=== PATIENT | male | born 1940 | race Caucasian/White ===

== ENCOUNTER 2018-10-24 12:42 | Inpatient (IN) | payer MEDICARE, BC ==
[2018-10-24 13:13] LABS: #Basophils 0.1 thou/uL (0.0-0.2); #Eosinphils 0.2 thou/uL (0.0-0.7); #Lymphocytes 0.8 thou/uL (1.20-3.40); #Monocytes 0.5 thou/uL (0.11-0.59); #Neutrophils 3.1 thou/uL (1.40-6.50); %Basophils 1.5 % (0.0-1.0); %Eosinophils 3.9 % (0.0-10.0); %Lymphocytes 17.7 % (21.0-51.0); %Monocytes 10.8 % (0.0-10.0); %Neutrophils 66.1 % (42.0-75.0); Hemoglobin 12.4 g/dL (14.0-18.0); Mean Corpuscular HGB CONC 33.2 g/dL (32.0-36.0); Mean Corpuscular Hemoglobin 29.4 pg (27.0-31.0); Mean Corpuscular Volume 88.5 fL (78.0-98.0); Mean Platelet Volume 8.9 fL (7.4-10.4); Platelet Count 222 thou/uL (130-400); RBC Distribution Width 12.8 % (11.5-14.5); Red Blood Cell (RBC) Count 4.22 mill/uL (4.70-6.10); White Blood Cell (WBC) Count 4.7 thou/uL (4.8-10.8)
--- NOTE | 2018-10-24 13:20 | CT ---
CT HEAD WITHOUT CONTRAST: 10/24/18 INDICATIONS: Stroke alert. Right side weakness. There are no comparison studies. FINDINGS: Mild cortical volume loss. Ventricles have normal size and position. There are moderately severe chronic ischemic white matter changes. There are numerous old lacunar inf arcts seen in the periventricular white matter and the basal ganglia regions bilaterally. At least on e of these in the left thalamus is age indeterminate. There is evidence of an old cortical infarct in the left parietal lobe. No hemorrhage or mass. No evidence of acute cortical infarct. Sinuses and mastoids are clear. IMPRESSION: Moderately severe chronic ischemic change. Evidence of numerous old lacunar infarcts with an age inde terminate lacunar infarct in the left thalamus. No evidence of acute cortical infarct. Findings relayed to Dr. Sainz at 1:06 p.m. POS: OFF
[2018-10-24 13:29] LABS: Prothrombin Time 12.9 SEC (12.0-14.7)
[2018-10-24 13:43] LABS: ALT (SGPT) 32 U/L (8-55); AST (SGOT) 41 U/L (5-34); Albumin 4.4 g/dL (3.4-4.8); Alkaline Phosphatase 53 U/L (40-150); Anion Gap 15 mmol/L (10-20); BUN (Urea Nitrogen) 21 mg/dL (8.4-25.7); Bilirubin, Total 0.3 mg/dL (0.2-1.2); CK (CPK) 52 U/L (30-200); Calc. Creatinine Clearance 0 mL/min (70-130); Calcium 9.9 mg/dL (7.8-10.44); Carbon Dioxide 24 mmol/L (23-31); Chloride 106 mmol/L (98-107); Estimated GFR-MDRD 39; Glucose 126 mg/dL (83-110); Potassium 5.3 mmol/L (3.5-5.1); Protein, Total 7.4 g/dL (5.8-8.1); Sodium 140 mmol/L (136-145)
[2018-10-24] MEDS ORDERED: Aspirin 300 MG Suppository ONE (14:33)
[2018-10-24] MEDS ORDERED: Aspirin Chewable 81 MG TAB ONE (14:38)
[2018-10-24] MEDS ORDERED: Ondansetron PF 4 MG/2 ML Vial IVP PRN (15:01)
[2018-10-24] MEDS ORDERED: Acetaminophen 325 MG TAB PO PRN (15:01)
--- NOTE | 2018-10-24 15:19 | PDOC.FPRHP ---
- History of Present Illness Chief Complaint: speech difficulty and right sided weakness History of Present Illness: Obdulio Garibay is a 78 year old M with a PMH of CAD s/p CABG, Hx of TIA's, Dementia who is a resident of [facility] who presented to the ED after being found this morning with speech difficulty and right sided weakness and facial droop by [facility] staff. Patient's and son are present on admission and provide majority of history. He was last seen at his baseline mental and functional status the night prior to arrival, it is unknown when exactly his symptoms began. states that patient is normally about A&O X2 and he has urinary incontinence at baseline. Most notable symptom for family upon arrival to ED is patient's inability to find words, stating that it normally doesn't take him as long to communicate and answer questions. Denies any recent complaints of fever, chills, chest pain, dyspnea, n/v, abdominal pain, urinary complaints. In the ED, CT brain was done that showed moderate chronic ischemic changes and numerous old lacunar infarcts. EKG was done that showed NSR with nonspecific T wave and ST segment abnormalities. Patient was given aspirin and 500 cc NS bolus. - Allergies/Adverse Reactions Allergies Allergy/AdvReac Type Severity Reaction Status Date / Time No Known Allergies Allergy Unverified 10/24/18 15:06 - Home Medications Medication Instructions Recorded Confirmed Type Amitriptyline HCl 75 mg PO HS 10/24/18 10/24/18 History Aspirin [Ecotrin Low Strength] 81 mg PO DAILY 10/24/18 10/24/18 History Clopidogrel Bisulfate [Clopidogrel] 75 mg PO DAILY 10/24/18 10/24/18 History Donepezil HCl 10 mg PO HS 10/24/18 10/24/18 History Furosemide 20 mg PO DAILY 10/24/18 10/24/18 History Gabapentin 300 mg PO TID 10/24/18 10/24/18 History Isosorbide Mononitrate 20 mg PO DAILY 10/24/18 10/24/18 History Levothyroxine Sodium [Synthroid] 137 mcg PO DAILY 10/24/18 10/24/18 History Montelukast Sodium 10 mg PO DAILY 10/24/18 10/24/18 History Rosuvastatin [Crestor] 20 mg PO DAILY 10/24/18 10/24/18 History metFORMIN [Glucophage] 500 mg PO QA- 10/24/18 10/24/18 History - History PMHx: CAD, HTN, DM2, Hx of TIA, Dementia PSHx: CABG X3 vessel, Lap Klaudia, excision of malignant melanoma FHx: noncontributory Social: hx of 40 pack yr smoking-quit 30 years ago, denies current alcohol, tobacco, drug use - Review of Systems ROS unobtainable: due to mental status General: denies: fever/chills Eyes: denies: eye pain ENT: denies: nasal congestion, rhinorrhea Respiratory: denies: cough, congestion, shortness of breath Cardiovascular: denies: chest pain, palpitation Gastrointestinal: denies: nausea, vomiting, diarrhea, abdominal pain Genitourinary: reports: incontinence. denies: dysuria, discharge Skin: denies: rashes, lesions Musculoskeletal: denies: pain Neurological: denies: syncope, seizure Psychological: denies: anxiety, depression - Vital signs BP: 145/88 HR: 66 RR: 18 Tmax: 97.9 Pox: 96% on RA Wt: 95 kg - Physical Exam Constitutional: NAD, well developed, other (A&O X1) HEENT: normocephalic and atraumatic, PERRLA, EOMI, conjunctiva clear, grossly normal vision, grossly normal hearing, MMM Neck: supple, FROM Chest: no-tender to palpation, no lesions Heart: RRR, normal S1/S2, no murmurs/rubs/gallops Lungs: CTAB, no respiratory distress Abdomen: soft, non-tender, bowel sounds present Musculoskeletal: normal structure, normal tone, ROM grossly normal Neurological: no focal deficit, CN II-XII intact, other -Neurological: difficult to assess sensation, no obvious deficits on neuro exam Skin: no rash/lesions Heme/Lymphatic: no unusual bruising or bleeding, no purpura, no petechia -Psychiatric: unable to assess FMR H&P: Results - Labs Result Diagrams: 10/24/18 12:57 10/24/18 12:57 Lab results: WBC 4.7 thou/uL (4.8-10.8) L 10/24/18 12:57 Hgb 12.4 g/dL (14.0-18.0) L 10/24/18 12:57 Hct 37.3 % (42.0-52.0) L 10/24/18 12:57 MCV 88.5 fL (78.0-98.0) 10/24/18 12:57 Plt Count 222 thou/uL (130-400) 10/24/18 12:57 Neutrophils % 66.1 % (42.0-75.0) 10/24/18 12:57 Sodium 140 mmol/L (136-145) 10/24/18 12:57 Potassium 5.3 mmol/L (3.5-5.1) H 10/24/18 12:57 Chloride 106 mmol/L (98-107) 10/24/18 12:57 Carbon Dioxide 24 mmol/L (23-31) 10/24/18 12:57 BUN 21 mg/dL (8.4-25.7) 10/24/18 12:57 Creatinine 1.72 mg/dL (0.7-1.3) H 10/24/18 12:57 Glucose 126 mg/dL (83-110) H 10/24/18 12:57 Calcium 9.9 mg/dL (7.8-10.44) 10/24/18 12:57 Total Bilirubin 0.3 mg/dL (0.2-1.2) 10/24/18 12:57 AST 41 U/L (5-34) H 10/24/18 12:57 ALT 32 U/L (8-55) 10/24/18 12:57 Alkaline Phosphatase 53 U/L (40-150) 10/24/18 12:57 Creatine Kinase 52 U/L (30-200) 10/24/18 12:57 Serum Total Protein 7.4 g/dL (5.8-8.1) 10/24/18 12:57 Albumin 4.4 g/dL (3.4-4.8) 10/24/18 12:57 - EKG Interpretation EKG: NSR, nonspecific T wave and ST segment abnormalities - Radiology Interpretation CT scan - head Status: image reviewed by me, report reviewed by me (Moderate chronic ischemic changes, numerous old lacunar infarcts) FMR H&P: A/P - Problem List (1) TIA (transient ischemic attack) Current Visit: Yes Status: Acute Code(s): G45.9 - TRANSIENT CEREBRAL ISCHEMIC ATTACK, UNSPECIFIED (2) Acute kidney injury Current Visit: Yes Status: Acute Code(s): N17.9 - ACUTE KIDNEY FAILURE, UNSPECIFIED (3) Hyperkalemia Current Visit: Yes Status: Acute Code(s): E87.5 - HYPERKALEMIA (4) Hypertension Current Visit: Yes Status: Chronic Code(s): I10 - ESSENTIAL (PRIMARY) HYPERTENSION (5) CAD (coronary artery disease) Current Visit: Yes Status: Chronic Code(s): I25.10 - ATHSCL HEART DISEASE OF [place] CORONARY ARTERY W/O ANG PCTRS (6) Dementia Current Visit: Yes Status: Chronic Code(s): F03.90 - UNSPECIFIED DEMENTIA WITHOUT BEHAVIORAL DISTURBANCE (7) Diabetes mellitus Current Visit: Yes Status: Chronic Code(s): E11.9 - TYPE 2 DIABETES MELLITUS WITHOUT COMPLICATIONS - Plan 1) TIA: r/o CVA - expressive aphasia, reported right sided upper and lower ext weakness per nursing staff - aphasia on presentation but no signs of weakness - s/p Aspirin and 500 cc NS bolus in ED - CT brain showed chronic ischemic changes and old lacunar infarcts - checking Echo and MRI brain - continue high intensity statin and aspirin - holding antihypertensives at this time to allow for permissive hypertension - stroke team consulted - PT/OT/Speech consulted - NPO, until cleared by speech - obs/stroke 2) BOB - unsure of baseline kidney function - s/p 500 cc NS bolus - will continue to monitor 3) Hyperkalemia-mild - K+ of 5.3 on admission - continue to monitor 4) HTN - holding antihypertensives for now - will continue after 24-48 hours 5) DM2 - holding home metformin - SSI - Accuchecks, hypoglycemia protocol 6) Dementia - continue home regimen 7) CAD - continue home regimen PCP: Obdulio Rawls MD Diet: NPO until cleared by speech VTE Ppx: Lovenox Code Status: DNAR Dispo: Will r/o CVA with brain MRI, continue medical management. Stroke team/PT /OT/Speech consulted. Anticipate hospital stay < 2 midnights unless work up shows acute CVA. Addendum - Attending - Attending Attestation Date/Time: 10/24/18 3328 I personally evaluated the patient and discussed the management with Dr. Wilson. I agree with the History, Examination, Assessment and Plan documented above with any addition or exceptions noted below. S: 78 yo WM PMH advanced dementia with baseline A&Ox2 and multiple prior TIA/ CVA. Presents from [facility] with worsening speech articulation and new onset right sided weakness. At the time of my examination, the patients and son state his motor function is at baseline and his speech has nearly returned to normal. He had passed his bedside dysphasia screen at that time and had received ASA 324 mg PO. O: Gen: NAD CV: RRR no murmur Neuro: 5/5 strength in upper and lower major muscle groups bilaterally. Cranial nerve exam grossly normal but unable to completely assess due to patient's baseline mentation. A&P: 1. TIA r/o CVA: Obs, stroke, MRI brain, TTE. Discussed vascular evaluation with family who stated the patient had an evaluation in the [place] several years ago and was determined to need a "stent somewhere in his brain." However the doctors at that time did not feel he was a good candidate for this procedure and family elected not to proceed. Family declined evaluation of the vasculature as they would not want the patient to undergo further procedures but were agreeable to MRI of the brain to evaluate for acute infarct. Patient currently taking Daily ASA 81 qd and lipitor 40 mg QD. Increase lipitor to 80 mg QD as long as patient will tolerate. Permissive HTN for the next 24 hrs. Dispo: Obs, Stroke < [address] Daily present for evaluation.
--- NOTE | 2018-10-24 17:43 | MRI ---
MRI BRAIN NONCONTRAST: DATE: 10/24/2018 HISTORY: 78-year-old male with stroke COMPARISON: No prior MRIs FINDINGS: There is a large number of tiny, punctate foci of restricted diffusion in the left parietal cortex an d upper left frontal cortex, consistent with acute or subacute tiny infarctions. Small to moderate-sized old infarction in the left parietal lobe with laminar necrosis. Small old inf arction in left middle frontal gyrus. Numerous tiny old lacunar infarctions of bilateral basal ganglia and left thalamus, left caudate nucl eus, and internal capsules. Diffuse brain parenchymal volume loss. Moderate to severe chronic ischemic white matter changes of the cerebrum and brainstem. No obstructive hydrocephalus. No acute intra-axial hemorrhage. Patchy hemosiderin stain at right upper medial frontal lobe representing a site of prior hemorrhage. IMPRESSION: 1) a shower of numerous tiny, punctate acute or subacute infarctions in the left middle cerebral jose ry territory. 2) old infarctions of small and moderate sizes in the left middle cerebral artery territory 3) old hemorrhage in right frontal lobe. 4) multiple old lacunar infarctions in the bilateral corpus striatum and left thalamus. 5) moderate to severe chronic ischemic white matter changes.
[2018-10-24 17:55] VITALS: BMI 27.3
[2018-10-24] MEDS ORDERED: Dextrose 5% in Water 1,000 ML IV PRN (18:03)
[2018-10-24] MEDS ORDERED: Dextrose 50% Abboject 50 ML SYRINGE SLOW IVP PRN (18:03)
[2018-10-24] MEDS ORDERED: Aspirin 325 mg Enteric Coated Tablet PO SCH (21:00)
[2018-10-24] MEDS ORDERED: Rosuvastatin 20 MG TAB PO SCH (21:00)
[2018-10-24] MEDS: Atorvastatin Calcium 40 MG TAB PO SCH (21:10)
[2018-10-24] MEDS: Famotidine 20 MG TAB PO SCH (21:10)
[2018-10-25] MEDS ORDERED: HumaLOG 300 UNITS/3 ML VIAL SC PRN (04:49)
[2018-10-25 05:34] LABS: Anion Gap 11 mmol/L (10-20); BUN (Urea Nitrogen) 22 mg/dL (8.4-25.7); Calc. Creatinine Clearance 54 mL/min (70-130); Calcium 9.4 mg/dL (7.8-10.44); Carbon Dioxide 26 mmol/L (23-31); Cardiac Risk 4.4 (Less than 4.5); Chloride 106 mmol/L (98-107); Cholesterol 166 mg/dl (< 200 Desired); Estimated GFR-MDRD 43; Glucose 136 mg/dL (83-110); HDL Cholesterol 38 mg/dL (>60 Neg Risk); LDL Cholesterol, Calculated 93 mg/dL; Potassium 3.9 mmol/L (3.5-5.1); Sodium 139 mmol/L (136-145); Triglycerides 174 mg/dL (Less than 150)
[2018-10-25 05:37] LABS: Eosinophils 1 % (0-10); Hemoglobin 11.5 g/dL (14.0-18.0); Hypochromia SLIGHT = 6-15 cells (100X) (0-5/hpf); Lymphocytes 22 % (21-51); MDiff Complete? YES; Mean Corpuscular Hemoglobin 28.8 pg (27.0-31.0); Mean Corpuscular Volume 87.3 fL (78.0-98.0); Mean Platelet Volume 8.9 fL (7.4-10.4); Monocytes 7 % (0-10); Neutrophil 70 % (42-75); Platelet Count 192 thou/uL (130-400); Platelet Morphology Comment Appears Adequate; RBC Distribution Width 12.7 % (11.5-14.5); Red Blood Cell (RBC) Count 4.01 mill/uL (4.70-6.10); White Blood Cell (WBC) Count 3.9 thou/uL (4.8-10.8)
[2018-10-25] MEDS: Levothyroxine Sodium 25 MCG TAB PO SCH (05:48)
[2018-10-25] MEDS: Levothyroxine Sodium 112 MCG TAB PO SCH (05:48)
--- NOTE | 2018-10-25 05:56 | PDOC.FM ---
- Subjective Subjective: Patient was disoriented and mumbling during the evaluation, but appeared to be in no acute distress. Recently pulled out IV in LUE, with dried blood evident on hands and bed sheets. - Objective Vital Signs & Weight: Vital Signs (12 hours) Temp Pulse Resp BP Pulse Ox 10/25/18 04:00 97.8 F 68 18 126/89 97 10/24/18 23:30 97.8 F 74 20 147/65 H 94 L 10/24/18 19:32 98.2 F 80 18 174/77 H 97 Weight Weight 96.388 kg Result Diagrams: 10/25/18 04:43 10/25/18 04:43 Phys Exam - Physical Examination Constitutional: NAD HEENT: moist MMs, oral pharynx no lesions Neck: no nodes, supple, full ROM Respiratory: no wheezing, no rales, no rhonchi, clear to auscultation bilateral Cardiovascular: RRR, no significant murmur, no rub No carotid bruits Gastrointestinal: soft, non-tender, no distention, positive bowel sounds Musculoskeletal: no edema, pulses present Neurological: moves all 4 limbs Expressive aphasia, unable to answer questions or form sentences Lymphatic: no nodes Skin: no rash Dx/Plan (1) CVA (cerebral vascular accident) Code(s): I63.9 - CEREBRAL INFARCTION, UNSPECIFIED Status: Acute (2) CAD (coronary artery disease) Code(s): I25.10 - ATHSCL HEART DISEASE OF [place] CORONARY ARTERY W/O ANG PCTRS Status: Chronic (3) Dementia Code(s): F03.90 - UNSPECIFIED DEMENTIA WITHOUT BEHAVIORAL DISTURBANCE Status: Chronic (4) Diabetes mellitus Code(s): E11.9 - TYPE 2 DIABETES MELLITUS WITHOUT COMPLICATIONS Status: Chronic (5) Hypertension Code(s): I10 - ESSENTIAL (PRIMARY) HYPERTENSION Status: Chronic - Plan Plan: 1) TIA: r/o CVA -Expressive aphasia, reported RUE and RLE weakness per nursing staff -Aphasia on presentation, but no signs of weakness -s/p Aspirin and 500 cc NS bolus in ED -CT Brain: Chronic ischemic changes and old lacunar infarcts -MRI: Acute and chronic infarcts at area of MCA, with old lacunar and frontotemporal regions -Echo: Pending -Neuro Consult: Pending -Aspirin 81 mg PO, Atorvastatin 80 mg PO -Hold home antihypertensive medication regimen to allow for permissive hypertension -Stroke team consulted, awaiting input from Dr. Ruffin (Neuro) -PT/OT/Speech consulted -Swallow Study: Passed -Will initiate Heart Healthy Diet 2) BOB -Cr: 1.6 - Unsure of baseline renal function -SP 500 cc NS bolus -Will continue to monitor 3) Hyperkalemi, Resolved -K+ of 5.3 on admission -Continue to monitor 4) HTN - holding antihypertensives for now - will continue after 24-48 hours 5) DM2 -Holding home Metformin -SSI -Accuchecks, hypoglycemia protocol 6) Dementia -Continue home medication regimen 7) CAD -Continue home medication regimen PCP: Obdulio Rawls MD Diet: Heart Healthy VTE Prophylaxis: Lovenox Code Status: DNAR Dispo: CVA likely based on with MRI Brain, continue medical management and coordinate closely with Dr. Ruffin (Neuro) and family. Stroke team/PT/OT/ Speech consulted.
[2018-10-25] MEDS: Aspirin 81 mg Enteric Coated Tablet PO SCH (08:12)
[2018-10-25] MEDS: Clopidogrel Bisulfate 75 MG TAB PO SCH (08:12)
[2018-10-25] MEDS: Gabapentin 300 MG CAP PO SCH ×3 (08:12→20:23)
[2018-10-25] MEDS: Famotidine 20 MG TAB PO SCH ×2 (08:12→20:23)
[2018-10-25] MEDS: Montelukast Sodium 10 mg Tablet PO SCH (08:12)
[2018-10-25] MEDS ORDERED: Non-Formulary Item 1 EACH (Levothyroxine Sodium [Synthroid] 137 MCG) PO SCH (09:00)
--- NOTE | 2018-10-25 10:59 | PRG ---
DATE OF SERVICE: 10/25/2018 Mr. Garibay is resting quietly in bed. He still has a very impressive expressive aphasia. His workup thus far includes a brain MRI and a brain CT. The brain MRI shows a shower of numerous tiny punctate acute or subacute infarctions in the left middle cerebral artery territory. There are old infarctions of small and moderate size in the left middle cerebral artery territory. There is an old hemorrhage in the right frontal lobe. There are multiple old lacunar infarcts in the bilateral corpus striatum and left thalamus. There are murhnbos-eq-wauixs chronic ischemic white matter changes. In the event as discussed earlier, the does not wish any aggressive measures such as stenting carotid artery surgery, etc. undertaken. She prefers medical therapy only. We have Mr. Garibay on aspirin and statin and are controlling his blood pressure. We have consulted Neurology and await their input. Job ID: [id number]
--- NOTE | 2018-10-25 11:39 | ULT ---
US Carotid Doppler STANDARD HISTORY: Stroke COMPARISON: None. FINDINGS: Real-time color Doppler evaluation of the right and left carotid system shows intimal thick ening and some calcified plaque formation bilaterally. On the right side peak systolic velocities of the common carotid were 99 cm/s. Internal carotid veloc ity is 103 cm/s and external carotid velocities 94 cm/s. On the left side peak systolic velocities the common carotid were 160 cm/s. Internal carotid velociti es of 60 cm/s and external carotid velocities of 120 cm/s. Vertebral flow is antegrade bilaterally. IMPRESSION: No evidence of hemodynamically significant stenosis of either internal carotid artery by [place] criteria.
--- NOTE | 2018-10-25 14:16 | HP ---
HISTORY OF PRESENT ILLNESS: I actually examined the patient yesterday at approximately 1 p.m., yesterday being 10/24/2018. I discussed the case with Dr. Wilson and agree with his assessment and plan. Mr. Garibay is a pleasant 78-year-old half-way resident, who presented initially with chief complaint of speech difficulty and right-sided weakness. Much of this had resolved by the time he presented to our ER. He did not have any demonstrable weakness on the right side, but was having trouble with word finding, which his states is not new. In the event, he was admitted with a possible TIA versus stroke. PHYSICAL EXAMINATION: VITAL SIGNS: His blood pressure was 145/88, heart rate 66, respirations 18, and he is afebrile. His room air pulse ox is 96%. GENERAL: He is alert, in no acute distress. He does not know the date. He does not know where he is. NECK: Supple. EAR, NOSE, AND THROAT: No erythema or exudate. CARDIAC: Regular rate and rhythm. S4 gallop. No murmur or rub noted. LUNGS: Diminished, but clear without rales or wheezes. ABDOMEN: Flat, soft, and scaphoid. No guarding, rebound, or rigidity. NEUROLOGIC: He does have a mild expressive aphasia, but seems to move all extremities with equal strength bilaterally. No extraocular movement abnormalities. LABORATORY DATA: CBC, white count is 4700 with a hemoglobin of 12.4 and hematocrit 37.3 with an MCV of 88. Chemistries; sodium is 140, potassium 5.3, chloride 106, bicarb 24, BUN 21, and creatinine 1.72 with a GFR of 39. Glucose 126. Liver enzymes normal. ASSESSMENT: Transient ischemic attack versus stroke. PLAN: We will admit, observe. The family has adamantly stated that the patient is a DNR. They do not want the evaluation other than an MRI. Specifically, they do not want a vascular examination with CTA or MRA as they state they would not do anything about it anyway. We will of course honor their wishes. We already started aspirin and atorvastatin. Job ID: [id number]
[2018-10-25] MEDS: Atorvastatin Calcium 40 MG TAB PO SCH (20:23)
[2018-10-25] MEDS ORDERED: Melatonin 3 MG TAB PO PRN (21:19)
--- NOTE | 2018-10-25 23:03 | CON ---
DATE OF CONSULTATION: 10/25/2018 CONSULT PHYSICIAN: [facility]. IMPRESSION: 1. New left MCA stroke with what appears to be global aphasia, right facial droop and mild right upper extremity weakness. 2. The patient is already on maximum medical therapy. PLAN: Determine whether the patient is safe for swallowing versus need for PEG tube placement. HISTORY OF PRESENT ILLNESS: Mr. Garibay is a 78-year-old man, who apparently is a halfway resident. He came in with acute neurologic changes. His MRI of the brain revealed shower of multiple small infarcts in the left MCA territory. His carotid ultrasound did not show source of thromboembolic event. His echocardiogram is pending. His cholesterol ratio is 4.4. He was previously taking aspirin, Plavix, and statin prior to admission. PAST MEDICAL HISTORY: Diabetes, dementia, hypothyroidism. SOCIAL HISTORY: No tobacco or alcohol use. ALLERGIES: NONE REPORTED. REVIEW OF SYSTEMS: Not obtainable due to his aphasia. PHYSICAL EXAMINATION: VITAL SIGNS: Blood pressure was 154/68, pulse 62, respirations 19, temperature 97.8 on admission. HEENT: Pupils are equal. Conjunctivae clear. Oropharynx clear. Cranium, normocephalic and atraumatic. NECK: No lymphadenopathy. EXTREMITIES: No cyanosis or edema. NEUROLOGIC: He appears to be awake but was nonverbal, could not get him to follow any simple commands. He had a mild right facial droop. He preferred using the left arm, but had some antigravity strength on the right side. Gait was not testable. Sensation was grossly intact. No abnormal movements were seen. IMAGING STUDIES: EKG shows normal sinus rhythm. SUMMARY: Elderly gentleman who appears to have multiple areas of infarct in the left MCA territory. He is currently on maximum medical therapy unless there is a proven cardioembolic source. His swallow function is indeterminate at this point. I agree with your management. Job ID: [id number]
[2018-10-25] MEDS ORDERED: Donepezil HCl 10 MG TAB PO SCH (23:15)
[2018-10-26] MEDS: Levothyroxine Sodium 25 MCG TAB PO SCH (05:57)
[2018-10-26] MEDS: Levothyroxine Sodium 112 MCG TAB PO SCH (05:57)
--- NOTE | 2018-10-26 06:17 | PDOC.FM ---
- Subjective Subjective: Patient was not unarousable to verbal stimuli, sternal rub or painful stimuli. This is an acute change from his evaluation on 10/25/18. - Objective Vital Signs & Weight: Vital Signs (12 hours) Temp Pulse Resp BP Pulse Ox 10/26/18 03:47 98.1 F 57 L 16 124/60 97 10/26/18 00:15 96 10/26/18 00:00 98.3 F 64 18 155/70 H 100 10/25/18 20:00 98.1 F 75 16 175/79 H 96 Weight Admit Weight 96.388 kg Weight 96.388 kg I&O: 10/24/18 10/25/18 10/26/18 06:59 06:59 06:59 Intake Total 240 Balance 240 Result Diagrams: 10/25/18 04:43 10/25/18 04:43 Phys Exam - Physical Examination Constitutional: NAD HEENT: PERRLA, moist MMs, sclera anicteric, oral pharynx no lesions Neck: no nodes, supple Respiratory: no wheezing, no rales, no rhonchi, clear to auscultation bilateral Cardiovascular: RRR, no significant murmur, no rub Gastrointestinal: soft, non-tender, no distention Musculoskeletal: no edema, pulses present Lymphatic: no nodes Skin: no rash Dx/Plan (1) CVA (cerebral vascular accident) Code(s): I63.9 - CEREBRAL INFARCTION, UNSPECIFIED Status: Acute (2) CAD (coronary artery disease) Code(s): I25.10 - ATHSCL HEART DISEASE OF [place] CORONARY ARTERY W/O ANG PCTRS Status: Chronic (3) Dementia Code(s): F03.90 - UNSPECIFIED DEMENTIA WITHOUT BEHAVIORAL DISTURBANCE Status: Chronic (4) Diabetes mellitus Code(s): E11.9 - TYPE 2 DIABETES MELLITUS WITHOUT COMPLICATIONS Status: Chronic (5) Hypertension Code(s): I10 - ESSENTIAL (PRIMARY) HYPERTENSION Status: Chronic - Plan Plan: 1) CVA vs. CVA w/ Re-bleed -Expressive aphasia, reported RUE and RLE weakness per nursing staff -Aphasia on presentation, difficult to assess strength based on mental status -SP Aspirin and 500 cc NS bolus in ED -CT Brain: Chronic ischemic changes and old lacunar infarcts -MRI: Acute and chronic infarcts at area of MCA, with old lacunar and frontotemporal regions -Echo: Technically difficult, EJ preserved with dilated Aortic Root (3.9 cm) -Carotid Doppler US: No significant stenosis -Speech Therapy Swallow Study: Passed -Dr. Ruffin (Neuro) consulted on 10/25 - Recommended additional swallow study ( Currently postponed) -Recent somulence concerning for re-bleed - consulted and states that over-sedation tends to happen with medication regimen -Additional Brain MRI schedule on routine status per 's wishes -DNAR confirmed with and invasive surgical intervention and advanced feeding methods still not desired -Hold home antihypertensive medication regimen to allow for permissive hypertension 2) BOB -Cr: 1.6 - Unsure of baseline renal function -SP 500 cc NS bolus -Cr: 1.57 on 10/25/18 3) Hyperkalemi, Resolved -K+ of 5.3 on admission -K: 3.9 on 10/25/18 4) HTN -BP was 120/62 on 10/25/18 -Continue to hold home medication regimen 5) DM2 -Currently holding home medication regimen -Accuchecks with Hypoglycemia Protocol 6) Dementia -Over-sedation possible -Home home medication regimen 7) CAD -Hold home medication regimen until ability to tolerate PO medication improves PCP: Obdulio Rawls MD Diet: NPO VTE Prophylaxis: Lovenox Code Status: DNAR Dispo: CVA confirmed via Brain MRI, additional Brain MRI planned based on concern for re-bleed. Continue medical management and coordinate closely with Dr. Ruffin (Neuro) and family. Stroke team/PT/OT/Speech consulted.
--- NOTE | 2018-10-26 11:23 | CT ---
Exam: Head CT without contrast HISTORY: Hemorrhagic CVA. COMPARISON: 10/24/2018 FINDINGS: Hemorrhage: No intraparenchymal hemorrhage or extra-axial hematoma. Brain parenchyma: Stable malacic changes involving the left occipital and parietal lobe. Remainder of the cerebrum demonstrates preservation of cortical fontaine-white matter differentiation. Stable white matter hypodensities due to chronic small vessel ischemic change. Remote cavitary lacunar infarcts in the anterior limb of the right internal capsule, genu of the left internal capsule and bilateral periventricular white matter. Ventricular system: Ventricles and sulci are patent and symmetric. Calvarium: Intact. Sinuses and mastoid air cells: Adequate aeration. IMPRESSION: No acute intracranial process.
--- NOTE | 2018-10-26 11:50 | PRG ---
DATE OF SERVICE: 10/26/2018 Mr. Garibay is very somnolent this morning and difficult to arouse. He did, however, have some sleeping medications and otherwise sedating medications after midnight last night. However, given that he has had a CVA, if he does not begin to wake up by noon, I suggest we repeat some imaging probably a brain CT. Job ID: [id number]
[2018-10-26] MEDS: metFORMIN 500 MG TAB PO SCH (13:06)
[2018-10-26] MEDS: Aspirin 81 mg Enteric Coated Tablet PO SCH (13:07)
[2018-10-26] MEDS: Clopidogrel Bisulfate 75 MG TAB PO SCH (13:07)
[2018-10-26] MEDS: Famotidine 20 MG TAB PO SCH ×2 (13:07→21:25)
[2018-10-26] MEDS: Montelukast Sodium 10 mg Tablet PO SCH (13:08)
[2018-10-26] MEDS: Gabapentin 300 MG CAP PO SCH ×3 (13:08→21:25)
[2018-10-26] MEDS: Furosemide 20 MG TAB PO SCH (13:08)
--- NOTE | 2018-10-26 15:32 | RAD ---
Portable chest: HISTORY: Assess loop recorder COMPARISON: None FINDINGS: Lung reese are clear. Heart and mediastinum appear unremarkable. Vascularity is normal. Visualized osseous structures unremarkable. Postop sternotomy change. Electronic device with leads o verlie the chest. IMPRESSION: No acute finding
--- NOTE | 2018-10-26 16:34 | MRI ---
Exam: Brain MRI without contrast HISTORY: Acute mental status change COMPARISON: 10/24/2018 FINDINGS: Calvarial marrow signal intensity: Appropriate T1 signal Gradient echo sequence: Stable hemosiderin deposition involving the bilateral lentiform nuclei, and r ight frontal lobe. Brain parenchyma: No parenchymal mass, mass effect or midline shift. Age-appropriate atrophy. Laminar necrosis left occipital lobe. Stable malacic and gliotic changes in the left occipital lobe, left frontal lobe. Cortical fontaine-white matter differentiation: Preserved in the right cerebrum. Absent fontaine-white matter differentiation in the left cerebrum corresponding to regions of malacic and gliotic changes as described above. Restricted diffusion: Central arterial flow void is maintained. However, there are multiple corticall y based areas of restricted diffusion involving the left MCA distribution. These areas of restricted diffusion are similar to the previous exam. White matter signal intensities: T2, FLAIR white matter hyperintensities due to chronic small vessel ischemic changes, unchanged Sinuses: Adequate aeration of the paranasal sinuses and mastoid air cells. IMPRESSION: 1. Stable cortically based areas of restricted diffusion in left MCA distribution. Tiny embolic infar cts are favored. 2. Stable malacic and gliotic changes in the left MCA distribution. 3. Stable hemorrhage in the right frontal lobe and probable hemorrhage or calcification/mineralizatio n bilateral deep fontaine matter structures. 4. Stable laminar necrosis.. 5. Stable chronic small vessel ischemic changes of the white matter. Transcribed Date/Time: 10/26/2018 5:00 PM
[2018-10-26] MEDS: Atorvastatin Calcium 40 MG TAB PO SCH (21:24)
[2018-10-26] MEDS: Donepezil HCl 10 MG TAB PO SCH (21:25)
--- NOTE | 2018-10-26 22:02 | PDOC.FM ---
- Subjective Subjective: Pt is awake and pleasant upon my entry to the room. He does not speak. Pt is taking covers off and putting them back on repetitively. He shakes my hand. - Objective MAR Reviewed: Yes Vital Signs & Weight: Vital Signs (12 hours) Temp Pulse Resp BP Pulse Ox 10/26/18 19:58 98.1 F 65 16 140/60 91 L 10/26/18 16:00 97.8 F 73 18 132/63 91 L 10/26/18 12:01 97.4 F L 67 16 120/62 94 L Weight Admit Weight 96.388 kg Weight 96.388 kg I&O: 10/25/18 10/26/18 10/27/18 06:59 06:59 06:59 Intake Total 240 Balance 240 Result Diagrams: 10/27/18 07:47 10/27/18 07:47 Radiology Reviewed by me: Yes (MRI: Stable R Frontal Hemorrhage and stable L MCA embolic infarcts ) Phys Exam - Physical Examination Constitutional: NAD HEENT: moist MMs, sclera anicteric Pupils bilaterally sluggish reactivity. Rigth pupil 3 mm, Left pupil 2 mm Neck: no nodes, no JVD, supple Respiratory: no wheezing, no rales, no rhonchi, clear to auscultation bilateral Cardiovascular: RRR, no significant murmur, no rub Gastrointestinal: soft, non-tender, no distention, positive bowel sounds Musculoskeletal: no edema, pulses present Neurological: moves all 4 limbs Follows commands. Strength 5/5 in all extremities. Deviation from normal: Expressive Aphasia Skin: no rash, normal turgor, cap refill <2 seconds Dx/Plan - Plan Plan: 78 y/o M admitted for CVA rule out 1) CVA vs. CVA w/ Re-bleed -Expressive aphasia, reported RUE and RLE weakness per nursing staff -Aphasia on presentation, difficult to assess strength based on mental status -SP Aspirin and 500 cc NS bolus in ED -CT Brain: Chronic ischemic changes and old lacunar infarcts -MRI: Acute and chronic infarcts at area of MCA, with old lacunar and frontotemporal regions -Echo: Technically difficult, EJ preserved with dilated Aortic Root (3.9 cm) -Carotid Doppler US: No significant stenosis -Speech Therapy Swallow Study: Passed -Recent somnolence concerning for re-bleed -rescan Brain MRI: Stable Left MCA tiny embolic infarcts, Stable hemorrhage in Right Frontal Lobe. -DNAR confirmed with and invasive surgical intervention and advanced feeding methods still not desired -Hold home antihypertensive medication regimen to allow for permissive hypertension 2) Expressive Aphasia - Pt follows and understands commands. - Pt does not voice words. 3) BOB -Cr: 1.6 - Unsure of baseline renal function -SP 500 cc NS bolus -Cr: 1.57 on 10/25/18 4) Hyperkalemia, Resolved -K+ of 5.3 on admission -K: 3.9 on 10/25/18 5) HTN -BP was 120/62 on 10/25/18 -Continue to hold home medication regimen 6) DM2 -Currently holding home medication regimen -Accuchecks with Hypoglycemia Protocol 7) Dementia -Over-sedation possible -Home home medication regimen 8) CAD -Hold home medication regimen until ability to tolerate PO medication improves PCP: Obdulio Rawls MD Diet: NPO VTE Prophylaxis: SCD's Code Status: DNAR Dispo: Stable R frontal hemorrhage. continue current management. Stroke team/PT/ OT/Speech consulted. Addendum - Attending - Attending Attestation Date/Time: 10/27/182028 I personally evaluated the patient and discussed the management with Dr. Arita I agree with the History, Examination, Assessment and Plan documented above with any addition or exceptions noted below. Continue medical management patient is DNR.
[2018-10-27] MEDS: Levothyroxine Sodium 112 MCG TAB PO SCH (06:43)
[2018-10-27] MEDS: Levothyroxine Sodium 25 MCG TAB PO SCH (06:43)
[2018-10-27 07:59] LABS: #Eosinphils 0.2 thou/uL (0.0-0.7); #Lymphocytes 0.8 thou/uL (1.20-3.40); #Monocytes 0.5 thou/uL (0.11-0.59); #Neutrophils 2.7 thou/uL (1.40-6.50); %Eosinophils 5.6 % (0.0-10.0); %Lymphocytes 19.5 % (21.0-51.0); %Monocytes 10.7 % (0.0-10.0); %Neutrophils 63.2 % (42.0-75.0); Hemoglobin 13.1 g/dL (14.0-18.0); Mean Corpuscular HGB CONC 34.5 g/dL (32.0-36.0); Mean Corpuscular Hemoglobin 29.8 pg (27.0-31.0); Mean Corpuscular Volume 86.4 fL (78.0-98.0); Mean Platelet Volume 8.4 fL (7.4-10.4); Platelet Count 230 thou/uL (130-400); RBC Distribution Width 12.6 % (11.5-14.5); White Blood Cell (WBC) Count 4.2 thou/uL (4.8-10.8)
[2018-10-27 08:14] LABS: Anion Gap 15 mmol/L (10-20); BUN (Urea Nitrogen) 20 mg/dL (8.4-25.7); Calc. Creatinine Clearance 52 mL/min (70-130); Calcium 10.1 mg/dL (7.8-10.44); Carbon Dioxide 22 mmol/L (23-31); Chloride 104 mmol/L (98-107); Estimated GFR-MDRD 41; Glucose 134 mg/dL (83-110); Potassium 4.2 mmol/L (3.5-5.1); Sodium 137 mmol/L (136-145)
[2018-10-27] MEDS: Dextrose 5 % And 0.9 % NaCl 1,000 ML IV SCH ×2 (08:31→20:17)
[2018-10-27] MEDS: Aspirin 81 mg Enteric Coated Tablet PO SCH (11:17)
[2018-10-27] MEDS: metFORMIN 500 MG TAB PO SCH (11:17)
[2018-10-27] MEDS: Furosemide 20 MG TAB PO SCH (11:18)
[2018-10-27] MEDS: Famotidine 20 MG TAB PO SCH ×2 (11:18→20:17)
[2018-10-27] MEDS: Gabapentin 300 MG CAP PO SCH ×3 (11:18→20:18)
[2018-10-27] MEDS: Clopidogrel Bisulfate 75 MG TAB PO SCH (11:18)
[2018-10-27] MEDS: Montelukast Sodium 10 mg Tablet PO SCH (11:18)
--- NOTE | 2018-10-27 13:28 | EKG ---
Test Reason : L2 STROKE Blood Pressure : / mmHG Vent. Rate : 063 BPM Atrial Rate : 063 BPM P-R Int : 198 ms QRS Dur : 090 ms QT Int : 416 ms P-R-T Axes : 006 054 124 degrees QTc Int : 425 ms Normal sinus rhythm Abnormal ECG Confirmed by TIFFANI SABA, YUE Lindsay ([id number]), fan mail editor CHRISTIAN SCHWARTZ ([id number]) on 10/27/2018 1:27:54 PM Referred By: Confirmed By:YUE NIXON MD
[2018-10-27] MEDS: Aspirin 300 MG Suppository PR SCH (18:00)
[2018-10-27] MEDS: Donepezil HCl 10 MG TAB PO SCH (20:17)
[2018-10-27] MEDS: Atorvastatin Calcium 40 MG TAB PO SCH (20:17)
[2018-10-28] MEDS: Dextrose 5 % And 0.9 % NaCl 1,000 ML IV SCH ×3 (05:32→17:04)
[2018-10-28] MEDS: Levothyroxine Sodium 25 MCG TAB PO SCH (05:38)
[2018-10-28] MEDS: Levothyroxine Sodium 112 MCG TAB PO SCH (05:38)
--- NOTE | 2018-10-28 05:42 | PDOC.FM ---
- Subjective Subjective: Pt is resting comfortably in bed when I entered the room. He awakens, but does not speak. Pt is very fearful and tearful. - Objective MAR Reviewed: Yes Vital Signs & Weight: Vital Signs (12 hours) Temp Pulse Resp BP Pulse Ox 10/28/18 03:54 98 F 71 20 145/75 H 94 L 10/27/18 23:00 98.3 F 64 18 173/79 H 96 10/27/18 19:20 97.4 F L 76 20 139/73 94 L Weight Admit Weight 96.388 kg Weight 96.388 kg I&O: 10/26/18 10/27/18 10/28/18 06:59 06:59 06:59 Intake Total 240 Balance 240 Result Diagrams: 10/28/18 09:27 10/28/18 09:26 Phys Exam - Physical Examination Constitutional: NAD HEENT: moist MMs, sclera anicteric Neck: no nodes, no JVD, supple, full ROM Respiratory: no wheezing, no rales, no rhonchi, clear to auscultation bilateral Cardiovascular: RRR, no significant murmur, no rub Gastrointestinal: soft, non-tender, no distention, positive bowel sounds Musculoskeletal: no edema, pulses present Neurological: moves all 4 limbs Lymphatic: no nodes Deviation from normal: non-verbal, and does not attempt to communicate. Skin: no rash, normal turgor, cap refill <2 seconds Dx/Plan (1) CVA (cerebral vascular accident) Code(s): I63.9 - CEREBRAL INFARCTION, UNSPECIFIED Status: Acute (2) CAD (coronary artery disease) Code(s): I25.10 - ATHSCL HEART DISEASE OF [place] CORONARY ARTERY W/O ANG PCTRS Status: Chronic (3) Dementia Code(s): F03.90 - UNSPECIFIED DEMENTIA WITHOUT BEHAVIORAL DISTURBANCE Status: Chronic (4) Diabetes mellitus Code(s): E11.9 - TYPE 2 DIABETES MELLITUS WITHOUT COMPLICATIONS Status: Chronic (5) Hypertension Code(s): I10 - ESSENTIAL (PRIMARY) HYPERTENSION Status: Chronic - Plan Plan: 78 y/o M admitted for CVA rule out 1) CVA vs. CVA w/ Re-bleed -Expressive aphasia, reported RUE and RLE weakness per nursing staff -Aphasia on presentation, difficult to assess strength based on mental status -SP Aspirin and 500 cc NS bolus in ED -CT Brain: Chronic ischemic changes and old lacunar infarcts -MRI: Acute and chronic infarcts at area of MCA, with old lacunar and frontotemporal regions -Echo: Technically difficult, EF preserved with dilated Aortic Root (3.9 cm) -Carotid Doppler US: No significant stenosis -Speech Therapy Swallow Study: Passed -Recent somnolence concerning for re-bleed -rescan Brain MRI: Stable Left MCA tiny embolic infarcts, Stable hemorrhage in Right Frontal Lobe. -DNAR confirmed with and invasive surgical intervention and advanced feeding methods still not desired -Hold home antihypertensive medication regimen to allow for permissive hypertension 2) Expressive Aphasia - Pt follows and understands commands. - Pt does not voice words. 3) BOB -Cr: 1.6 - Unsure of baseline renal function -SP 500 cc NS bolus -Cr: 1.57 on 10/25/18 4) Hyperkalemia, Resolved -K+ of 5.3 on admission -K: 3.9 on 10/25/18 5) HTN -BP was 145/74 on 10/28/18 -Continue to hold home medication regimen 6) DM2 -Currently holding home medication regimen -Accuchecks with Hypoglycemia Protocol 7) Dementia -Over-sedation possible -Home home medication regimen - Worsening of status. Awaiting speech therapy to evaluate if pt can eat safely. - Palliative care consult 8) CAD -Hold home medication regimen until ability to tolerate PO medication improves PCP: Obdulio Rawls MD Diet: NPO VTE Prophylaxis: SCD's Code Status: DNAR Dispo: Stable R frontal hemorrhage. continue current management. Stroke team/PT/ OT/Speech consulted. Addendum - Attending - Attending Attestation Date/Time: 10/28/18 3901 I personally evaluated the patient and discussed the management with Dr. Arita I agree with the History, Examination, Assessment and Plan documented above with any addition or exceptions noted below. To meet with family later today to discuss options of levels of care i.e. Palliative/Hospice care [facility] prognosis is felt poor. Patient still needs speech therapy evaluation and recommendations.
[2018-10-28] MEDS: metFORMIN 500 MG TAB PO SCH (09:27)
[2018-10-28] MEDS: Aspirin 300 MG Suppository PR SCH (09:27)
[2018-10-28] MEDS: Clopidogrel Bisulfate 75 MG TAB PO SCH (09:27)
[2018-10-28] MEDS: Gabapentin 300 MG CAP PO SCH ×3 (09:28→21:30)
[2018-10-28] MEDS: Furosemide 20 MG TAB PO SCH (09:28)
[2018-10-28] MEDS: Famotidine 20 MG TAB PO SCH ×2 (09:28→21:30)
[2018-10-28] MEDS: Montelukast Sodium 10 mg Tablet PO SCH (09:28)
[2018-10-28 09:39] LABS: #Basophils 0.1 thou/uL (0.0-0.2); #Eosinphils 0.2 thou/uL (0.0-0.7); #Lymphocytes 0.8 thou/uL (1.20-3.40); #Monocytes 0.6 thou/uL (0.11-0.59); #Neutrophils 3.2 thou/uL (1.40-6.50); %Basophils 1.1 % (0.0-1.0); %Eosinophils 3.3 % (0.0-10.0); %Lymphocytes 16.5 % (21.0-51.0); %Monocytes 12.4 % (0.0-10.0); %Neutrophils 66.7 % (42.0-75.0); Hemoglobin 12.7 g/dL (14.0-18.0); Mean Corpuscular HGB CONC 34.2 g/dL (32.0-36.0); Mean Corpuscular Hemoglobin 29.7 pg (27.0-31.0); Mean Corpuscular Volume 86.7 fL (78.0-98.0); Mean Platelet Volume 8.4 fL (7.4-10.4); Platelet Count 221 thou/uL (130-400); RBC Distribution Width 12.6 % (11.5-14.5); Red Blood Cell (RBC) Count 4.27 mill/uL (4.70-6.10); White Blood Cell (WBC) Count 4.8 thou/uL (4.8-10.8)
[2018-10-28 09:57] LABS: ALT (SGPT) 29 U/L (8-55); AST (SGOT) 33 U/L (5-34); Albumin 4.3 g/dL (3.4-4.8); Alkaline Phosphatase 53 U/L (40-150); Anion Gap 12 mmol/L (10-20); BUN (Urea Nitrogen) 15 mg/dL (8.4-25.7); Bilirubin, Total 0.5 mg/dL (0.2-1.2); Calc. Creatinine Clearance 59 mL/min (70-130); Calcium 9.4 mg/dL (7.8-10.44); Carbon Dioxide 23 mmol/L (23-31); Chloride 106 mmol/L (98-107); Estimated GFR-MDRD 48; Globulin 2.7 g/dL (2.4-3.5); Glucose 163 mg/dL (83-110); Sodium 137 mmol/L (136-145)
[2018-10-28] MEDS: Atorvastatin Calcium 40 MG TAB PO SCH (21:30)
[2018-10-28] MEDS: Donepezil HCl 10 MG TAB PO SCH (21:30)
[2018-10-29] MEDS: Dextrose 5 % And 0.9 % NaCl 1,000 ML IV SCH ×3 (00:46→17:51)
[2018-10-29] MEDS: Levothyroxine Sodium 112 MCG TAB PO SCH (05:31)
[2018-10-29] MEDS: Levothyroxine Sodium 25 MCG TAB PO SCH (05:33)
--- NOTE | 2018-10-29 05:53 | PDOC.FM ---
- Subjective Subjective: Patient's mental status appeared unchanged since 10/26/18 - minimally arousable to verbal stimuli, sternal rub, or painful stimuli. The patient appeared to be in no acute distress at this time. The patient's was in the room at the time of the evaluation and was amenable to ongoing discussions about palliative care. - Objective Vital Signs & Weight: Vital Signs (12 hours) Temp Pulse Resp BP Pulse Ox 10/29/18 03:57 98.6 F 60 20 106/55 L 94 L 10/29/18 00:00 98.4 F 66 18 141/68 H 93 L 10/28/18 20:59 96 10/28/18 20:20 178/93 H 10/28/18 20:00 98.7 F 67 16 192/86 H 96 Weight Admit Weight 96.388 kg Weight 96.388 kg I&O: 10/27/18 10/28/18 10/29/18 06:59 06:59 06:59 Intake Total 1375 534 Balance 1375 534 Result Diagrams: 10/28/18 09:27 10/28/18 09:26 Phys Exam - Physical Examination Constitutional: NAD HEENT: moist MMs, oral pharynx no lesions Neck: no nodes, supple Respiratory: no wheezing, no rales, no rhonchi, clear to auscultation bilateral Cardiovascular: RRR, no significant murmur, no rub Gastrointestinal: soft, non-tender Musculoskeletal: no edema, pulses present Neurological: non-focal, moves all 4 limbs Lymphatic: no nodes Dx/Plan (1) CVA (cerebral vascular accident) Code(s): I63.9 - CEREBRAL INFARCTION, UNSPECIFIED Status: Acute (2) CAD (coronary artery disease) Code(s): I25.10 - ATHSCL HEART DISEASE OF [place] CORONARY ARTERY W/O ANG PCTRS Status: Chronic (3) Dementia Code(s): F03.90 - UNSPECIFIED DEMENTIA WITHOUT BEHAVIORAL DISTURBANCE Status: Chronic (4) Diabetes mellitus Code(s): E11.9 - TYPE 2 DIABETES MELLITUS WITHOUT COMPLICATIONS Status: Chronic (5) Hypertension Code(s): I10 - ESSENTIAL (PRIMARY) HYPERTENSION Status: Chronic - Plan Plan: 1) CVA vs. CVA w/ Re-bleed -Expressive aphasia, reported RUE and RLE weakness per nursing staff -Aphasia on presentation, difficult to assess strength based on mental status -SP Aspirin and 500 cc NS bolus in ED -CT Brain: Chronic ischemic changes and old lacunar infarcts -MRI Brain: Acute and chronic infarcts at area of MCA, with old lacunar and fronto-temporal regions -2nd MRI Brain: No evidence of additional hemorrhagic or ischemic event -Echo: Technically difficult, EF preserved with dilated Aortic Root (3.9 cm) -Carotid Doppler US: No significant stenosis -Speech Therapy Swallow Study: Passed, ongoing efforts increasingly difficult -DNAR confirmed with and invasive surgical intervention and advanced feeding methods still not desired -Patient's requested pureed diet as a palliative measure, was educated on risks of aspiration based on current mental status -Palliatice Care meeting scheduled for 1330 this afternoon, coordinate with the patient's thereafter to establish plan of care -Hold home antihypertensive medication regimen to allow for permissive HTN 2) Expressive Aphasia -Patient was initially able to follow and understand commands, non-responsive at this time -Patient does not voice words or communicate in any way 3) BOB -Cr: 1.6 - Unsure of baseline renal function -SP 500 cc NS bolus -Cr: 1.4 on 10/29/18 4) Hyperkalemia, Resolved -K+ of 5.3 on admission -K: 4 on 10/29/18 5) HTN -BP was 106/55 on 10/28/18 -Continue to hold home medication regimen 6) DM2 -Currently holding home medication regimen -Accuchecks with Hypoglycemia Protocol 7) Dementia -Over-sedation possible, but less likely based on continued decline in light of CVA -Palliative Care consult scheduled later today 8) CAD -Hold home medication regimen until ability to tolerate PO medication improves PCP: Obdulio Rawls MD Diet: Pureed Mechanical Diet with VTE Prophylaxis: SCD's Code Status: DNAR Dispo: Stable right fronto-temporal hemorrhage. Continue current management and evaluated as needed. Stroke Team/PT/OT/Speech consulted, currently awaiting recommendations from Palliative care at 1330 on 10/29/18. Prognosis is generally poor - end of life care discussion will be ongoing with the patient's .. Addendum - Attending - Attending Attestation Date/Time: 10/29/18 0140 I personally evaluated the patient and discussed the management with Dr. Schmitz. I agree with the History, Examination, Assessment and Plan documented above with any addition or exceptions noted below. Patient aphasic and very limited in what he can physically do. Hospice discussion today with his who doesn't feel like he would have any quality of life if he continued in this fashion. Palliative meeting @ 1:30 PM.
[2018-10-29] MEDS: HumaLOG 300 UNITS/3 ML VIAL SC PRN ×2 (06:39→17:52)
[2018-10-29] MEDS ORDERED: Enoxaparin Sodium 40 MG/0.4 ML SYRINGE SC SCH (09:00)
[2018-10-29] MEDS: Clopidogrel Bisulfate 75 MG TAB PO SCH (09:34)
[2018-10-29] MEDS: Famotidine 20 MG TAB PO SCH ×2 (09:34→20:55)
[2018-10-29] MEDS: Gabapentin 300 MG CAP PO SCH ×3 (09:35→20:54)
[2018-10-29] MEDS: metFORMIN 500 MG TAB PO SCH (09:35)
[2018-10-29] MEDS: Montelukast Sodium 10 mg Tablet PO SCH (09:35)
[2018-10-29] MEDS: Aspirin 325 MG TAB PO SCH (09:35)
[2018-10-29] MEDS: Furosemide 20 MG TAB PO SCH (09:35)
[2018-10-29] MEDS: Atorvastatin Calcium 40 MG TAB PO SCH (20:53)
[2018-10-29] MEDS: Donepezil HCl 10 MG TAB PO SCH (20:55)
[2018-10-30] MEDS: Dextrose 5 % And 0.9 % NaCl 1,000 ML IV SCH ×2 (03:58→13:30)
--- NOTE | 2018-10-30 05:02 | PDOC.FM ---
- Subjective Subjective: Mr. Garibay continues to be non-verbal, but was moving all 4 extremities and appeared slightly agitated at the time of the evaluation. The patient's was not present. - Objective Vital Signs & Weight: Vital Signs (12 hours) Temp Pulse Resp BP Pulse Ox 10/30/18 04:00 97.8 F 61 16 133/69 99 10/30/18 00:00 98.5 F 60 16 130/64 93 L 10/29/18 20:00 98.5 F 67 16 180/82 H 95 Weight Admit Weight 96.388 kg Weight 96.388 kg I&O: 10/28/18 10/29/18 10/30/18 06:59 06:59 06:59 Intake Total 1375 1809 Balance 1375 1809 Result Diagrams: 10/28/18 09:27 10/28/18 09:26 Phys Exam - Physical Examination Slightly agitated HEENT: PERRLA, moist MMs, sclera anicteric, oral pharynx no lesions Neck: supple, full ROM Respiratory: no wheezing, no rales, no rhonchi, clear to auscultation bilateral Cardiovascular: RRR, no significant murmur, no rub Gastrointestinal: soft, non-tender, no distention Musculoskeletal: no edema, pulses present Neurological: non-focal, moves all 4 limbs Lymphatic: no nodes Skin: no rash Dx/Plan (1) CVA (cerebral vascular accident) Code(s): I63.9 - CEREBRAL INFARCTION, UNSPECIFIED Status: Acute (2) CAD (coronary artery disease) Code(s): I25.10 - ATHSCL HEART DISEASE OF [place] CORONARY ARTERY W/O ANG PCTRS Status: Chronic (3) Dementia Code(s): F03.90 - UNSPECIFIED DEMENTIA WITHOUT BEHAVIORAL DISTURBANCE Status: Chronic (4) Diabetes mellitus Code(s): E11.9 - TYPE 2 DIABETES MELLITUS WITHOUT COMPLICATIONS Status: Chronic (5) Hypertension Code(s): I10 - ESSENTIAL (PRIMARY) HYPERTENSION Status: Chronic - Plan Plan: 1) CVA vs. CVA w/ Re-bleed -Expressive aphasia, reported RUE and RLE weakness per nursing staff -Aphasia on presentation, difficult to assess strength based on mental status -SP Aspirin and 500 cc NS bolus in ED -CT Brain: Chronic ischemic changes and old lacunar infarcts -MRI Brain: Acute and chronic infarcts at area of MCA, with old lacunar and fronto-temporal regions -2nd MRI Brain: No evidence of additional hemorrhagic or ischemic event -Echo: Technically difficult, EF preserved with dilated Aortic Root (3.9 cm) -Carotid Doppler US: No significant stenosis -Speech Therapy Swallow Study: Passed, ongoing efforts increasingly difficult -DNAR confirmed with and invasive surgical intervention and advanced feeding methods still not desired -Patient's requested pureed diet as a palliative measure, was educated on risks of aspiration based on current mental status -[facility] for patient following DC based on Palliative Care consult on 10/29/18 -Will confirm with patient's , Dr. Ruffin (Neuro) 2) Expressive Aphasia -Patient was initially able to follow and understand commands, non-responsive at this time -Patient does not voice words or communicate in any way 3) BOB -Cr: 1.6 - Unsure of baseline renal function -SP 500 cc NS bolus -Cr: 1.4 on 10/29/18 -Fluids DC'd 4) Hyperkalemia, Resolved -K+ of 5.3 on admission -K: 4 on 10/29/18 5) HTN -BP was 133/69 on 10/30/18 -Continue to hold home medication regimen 6) DM2 -Currently holding home medication regimen -Accuchecks with Hypoglycemia Protocol 7) Dementia -Over-sedation possible, but less likely based on continued decline in light of CVA -Palliative Care consulted on 10/29/18 -[facility] most likely destination for patient following DC 8) CAD -Hold home medication regimen until ability to tolerate PO medication improves PCP: Obdulio Rawls MD Diet: Pureed Mechanical Diet with VTE Prophylaxis: SCD's Code Status: DNAR Dispo: Stable right fronto-temporal hemorrhage. Continue current management and evaluated as needed. Stroke Team/PT/OT/Speech consulted, currently awaiting confirmation of recommendations from Palliative Care. Prognosis is generally poor - end of life care discussion will be ongoing with the patient's . Addendum - Attending - Attending Attestation Date/Time: 10/30/18 1110 I personally evaluated the patient and discussed the management with Dr. Schmitz. I agree with the History, Examination, Assessment and Plan documented above with any addition or exceptions noted below. Suprisingly, Ms. Garibay was sitting up in bed, shook my hand, and obviously had an expressive/receptive aphasia but is markedly improved. He reportedly ate his entire breakfast as well. Will ask Dr. Ruffin to come see. He may be a candidate for rehab.
[2018-10-30] MEDS: Levothyroxine Sodium 25 MCG TAB PO SCH (05:04)
[2018-10-30] MEDS: Levothyroxine Sodium 112 MCG TAB PO SCH (05:04)
[2018-10-30] MEDS: Aspirin 325 MG TAB PO SCH (10:40)
[2018-10-30] MEDS: Furosemide 20 MG TAB PO SCH (10:40)
[2018-10-30] MEDS: Montelukast Sodium 10 mg Tablet PO SCH (10:40)
[2018-10-30] MEDS: Famotidine 20 MG TAB PO SCH ×2 (10:40→21:55)
[2018-10-30] MEDS: Clopidogrel Bisulfate 75 MG TAB PO SCH (10:40)
[2018-10-30] MEDS: metFORMIN 500 MG TAB PO SCH (10:40)
[2018-10-30] MEDS: Gabapentin 300 MG CAP PO SCH ×3 (10:41→21:54)
[2018-10-30] MEDS: Atorvastatin Calcium 40 MG TAB PO SCH (21:54)
[2018-10-30] MEDS: Donepezil HCl 10 MG TAB PO SCH (21:55)
--- NOTE | 2018-10-31 05:48 | PDOC.FM ---
- Subjective Subjective: Mr. Garibay was resting comfortably at the time of evaluation, but could not be aroused, which is his baseline at this time of the day since his admission. He was in no acute distress. - Objective Vital Signs & Weight: Vital Signs (12 hours) Temp Pulse Resp BP BP Pulse Ox 10/31/18 03:33 97.7 F 61 18 139/70 97 10/30/18 23:53 97.6 F 68 20 135/73 95 10/30/18 20:05 95 10/30/18 20:00 97.3 F L 86 16 175/77 H 94 L Weight Admit Weight 96.388 kg Weight 96.388 kg I&O: 10/29/18 10/30/18 10/31/18 06:59 06:59 06:59 Intake Total 1809 1375 1456 Balance 1809 1375 1456 Result Diagrams: 10/28/18 09:27 10/28/18 09:26 Phys Exam - Physical Examination Constitutional: NAD HEENT: oral pharynx no lesions Neck: supple, full ROM Respiratory: no wheezing, no rales, no rhonchi Cardiovascular: RRR, no significant murmur, no rub Gastrointestinal: soft, non-tender Musculoskeletal: no edema, pulses present Neurological: non-focal Skin: no rash, normal turgor Dx/Plan (1) CVA (cerebral vascular accident) Code(s): I63.9 - CEREBRAL INFARCTION, UNSPECIFIED Status: Acute (2) CAD (coronary artery disease) Code(s): I25.10 - ATHSCL HEART DISEASE OF [place] CORONARY ARTERY W/O ANG PCTRS Status: Chronic (3) Dementia Code(s): F03.90 - UNSPECIFIED DEMENTIA WITHOUT BEHAVIORAL DISTURBANCE Status: Chronic (4) Diabetes mellitus Code(s): E11.9 - TYPE 2 DIABETES MELLITUS WITHOUT COMPLICATIONS Status: Chronic (5) Hypertension Code(s): I10 - ESSENTIAL (PRIMARY) HYPERTENSION Status: Chronic - Plan Plan: 1. CVA vs. CVA w/ Secondary Bleed -Expressive aphasia, reported RUE and RLE weakness per nursing staff -Aphasia on presentation, difficult to assess strength based on mental status -CT Brain: Chronic ischemic changes and old lacunar infarcts -MRI Brain: Acute and chronic infarcts at area of MCA, with old lacunar and fronto-temporal regions -2nd MRI Brain: No evidence of additional hemorrhagic or ischemic event -Echo: Technically difficult, EF preserved with dilated Aortic Root (3.9 cm) -Carotid Doppler US: NAF -DNAR confirmed with and invasive surgical intervention and advanced feeding methods still not desired -Patient's requested pureed diet as a palliative measure, was educated on risks of aspiration based on current mental status - asses likely diet prior to DC -Patient will DC to [facility] ([place], [place]) and will receive outpatient care from [facility] 2) Expressive Aphasia -Patient was initially able to follow and understand commands, now minimally responsive to simple questions -Patient's cognitive function and vocal skills continue to improve 3) BOB, largely resolved -Cr: 1.6 - Unsure of baseline renal function -SP 500 cc NS bolus -Cr: 1.4 on 10/29/18 -Fluids DC'd 4) Hyperkalemia, resolved -K+ of 5.3 on admission -K: 4 on 10/29/18 5) HTN -BP was 139/70 on 10/31/18 -Continue to hold home medication regimen 6) DM2 -Currently holding home medication regimen -Accuchecks with Hypoglycemia Protocol 7) Dementia -Over-sedation possible, but less likely based on continued decline in light of CVA -Palliative Care consulted on 10/29/18 -Cognitive function, vocal skills and physical strength appear greatly improved since admission 8) CAD -Hold home medication regimen until ability to tolerate PO medication improves PCP: Obdulio Rawls MD Diet: Pureed Mechanical Diet with VTE Prophylaxis: SCD's Code Status: DNAR Dispo: Stable right fronto-temporal hemorrhage. Continue current management and evaluated as needed. Prognosis has improved greatly since admission - still at great risk for aspiration pneumonia based on cognitive compromise. End of life care discussions and advanced planning prior to readmission should remain ongoing with patient's ([facility]).
[2018-10-31] MEDS: Levothyroxine Sodium 112 MCG TAB PO SCH (07:58)
[2018-10-31] MEDS: Levothyroxine Sodium 25 MCG TAB PO SCH (07:59)
[2018-10-31 08:05] VITALS: TEMP 97.4
--- NOTE | 2018-10-31 11:59 | PRG ---
DATE OF SERVICE: 10/31/2018 Mr. Garibay is sitting quietly in bed, in no distress. He will be discharged to [facility] later today. We had a discussion with Mr. Garibay about the patient's care and prognosis, and she seemed satisfied. Job ID: [id number]
[2018-10-31] MEDS: Clopidogrel Bisulfate 75 MG TAB PO SCH (12:00)
[2018-10-31] MEDS: metFORMIN 500 MG TAB PO SCH (12:00)
[2018-10-31] MEDS: Famotidine 20 MG TAB PO SCH (12:00)
[2018-10-31] MEDS: Aspirin 325 MG TAB PO SCH (12:00)
[2018-10-31] MEDS: Gabapentin 300 MG CAP PO SCH (12:01)
[2018-10-31] MEDS: Montelukast Sodium 10 mg Tablet PO SCH (12:01)
[2018-10-31] MEDS: Furosemide 20 MG TAB PO SCH (12:01)
[2018-10-31 12:03] VITALS: BP 146/68
--- NOTE | 2018-11-01 07:49 | PQF ---
VANESA BRINK DENNISJUSTIN CHIANG [id number] [address] [place] [address] [id number] CLINICAL DOCUMENTATION CLARIFICATION FORM: POST DISCHARGE Addendum to original discharge summary date: ____ Late entry note date: __ DATE:11/01/2018 ATTN:Justin Diana Please exercise your independent, professional judgment in responding to the clarification form. Clinical indicators are provided on the bottom of this form for your review Please check appropriate box(s): [ ] Encephalopathy: Type: [ ] Acute [ ] Subacute [ ] Chronic Etiology: [ ] Hypertensive [ ] Metabolic [ ] Toxic [ ] Other diagnosis please specify: [ ] Unable to determine In addition, please specify: Present on Admission (POA): [ ] Yes [ ] No [ ] Unable to determine CLINICAL INDICATORS: -PN p1 10/26 Mr Brink is very somnolent this morning and difficult to arouse -PN p1 10/26 "He did, however, have some sleeping medications and other lópez sedating medications after midnight last night" -Family medicine PN p1 10/30Pt mental status unchanged since 10/26/18 minimally arousable to verbal stimuli, sternal rub or painful stimuli -Family medicine PN p1 10/27 "CVA vs CVA with re-bleed" -Family medicine PN p2 10/27 "Recent somnolence concerning for re-bleed" RISK FACTORS: 78 years old-Consult p1 10/25 DementiaConsult p1 10/25 New left strokeConsult p1 10/25 Treatment: Suggest repeat imaging probably brain CT-PN p1 10/26 IVF- [id number] Neuro consult-Consult 10/25 Luis Alberto Magaña (This form is maintained as a part of the permanent medical record) 2014 [employer]. All Rights Reserved [email or web address] [not provided] MTDD
--- NOTE | 2018-11-01 15:34 | DIS ---
DATE OF ADMISSION: 10/24/2018 DATE OF DISCHARGE: 10/31/2018 RESIDENT: Chaim Schmitz MD ADMITTING ATTENDING: Luisito Thomas MD CONSULTS: Luis Alberto Ruffin MD, Neurology. 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 SECONDARY DIAGNOSES: Hypertension, history of transient ischemic attack, diabetes type 2, dementia, coronary artery disease, hypothyroidism. DISCHARGE MEDICATIONS: None. DISCONTINUED MEDICATIONS: 1. Isosorbide mononitrate 20 mg. 2. Aspirin 300 mg. 3. Acetaminophen 650 mg. 4. Ondansetron 4 mg. 5. Famotidine 20 mg. 6. Rosuvastatin 20 mg. 7. Atorvastatin 80 mg. 8. Levothyroxine sodium 112 mcg. 9. Melatonin 6 mg. 10. Donepezil 10 mg. 11. Enoxaparin 40 mg. HISTORY OF PRESENT ILLNESS/HOSPITAL COURSE: Mr. Obdulio Garibay is a 78-year-old male with past medical history significant for coronary artery disease status post coronary artery bypass grafting, history of transient ischemic attacks, dementia, who presents from a local longterm after being found with speech difficulty and right-sided weakness and facial droop. The patient's and son were present on admission and provided the majority of the history. He was last seen at his baseline mental and functional status the night prior and is unlikely to exactly pinpoint when his symptoms began. The states that he is normally disoriented (A and O x2) and has urinary incontinence at baseline. The patient was unable to find words, which was a new problem for him. The family denied any recent complaints of fevers, chills, chest pain, shortness of breath, nausea, vomiting, abdominal pain, or urinary complaints. In the emergency department, a CT brain was done that showed moderate ischemic changes and old lacunar infarcts. EKG showed normal sinus rhythm, nonspecific T-wave and ST-segment abnormalities. A brain MRI showed a shower of numerous tiny punctate acute or subacute infarctions in the middle left cerebral artery, old infarctions of small to moderate size in the left middle and cerebral artery, old hemorrhage in the right frontal lobe and multiple old lacunar infarcts in the bilateral corpus striatum and left thalamus. Echocardiogram was admittedly poor, but showed an ejection fraction of 60% to 65 % with mild 1/3 diastolic dysfunction, mild left ventricular hypertrophy, moderately dilated left atrium, mild mitral regurgitation, mild aortic regurgitation, mild tricuspid regurgitation. Dilated aortic root of approximately 3.9 cm. A second brain MRI showed no changes from the first MRI previously mentioned. A modified barium swallow was attempted twice, but was ultimately canceled. The patient was deemed to be a poor candidate to protect his own airway and swallow solid food unassisted. However, he is DNR with no additional interventions were desired by his , who is the medical power of commercial real estate attorney. She was counseled extensively on the importance of avoiding anything other than soft or liquid foods due to the risk of aspiration. The stated that she understood this risks, but wanted him to have a more robust diet and her plan was to increase his diet following discharge back to the longterm from which he came. Extensive counseling with the patient's on the goals of care occurred during his hospital stay, and Palliative Care was eventually consulted. [facility] was determined to be the most suitable hospice organization for the patient. The patient eventually became more stable during his hospital stay, was able to answer simple questions and move all of his extremities in moderate coordination. He continued to have a significant level of disorientation, but seemed overall improved from his original presentation. His vital signs on discharge revealed a temperature of 97.4, pulse 62, respiratory rate 16, oxygen saturation 91% on room air, blood pressure 146/68. White blood cell count of 4.8, hemoglobin 12.7, hematocrit 37, platelets 221. Coagulation panel revealed a PT of 12.9, INR of 1. APTT of 31. Chem panel revealed a sodium of 137, potassium 4, chloride 106, CO2 of 23, BUN 15, creatinine 1.43, glucose 163, AST 33, ALT 29, alkaline phosphatase 53. Troponins were less than 0.01. DISPOSITION: Stable, but long-term prognosis is poor. DISCHARGE INSTRUCTIONS: 1. Location: [facility], [place], [place]. 2. Diet: Recommended soft mechanical or liquid. However, the patient's stated she intended to recommend a more robust diet once he return to his longterm. 3. Activity: Bedrest. 4. Followup: The patient will follow up with [facility] in an outpatient setting. Job ID: [id number] [facility]
--- NOTE | 2018-11-01 20:55 | PQF ---
VANESA BRINK IRVIN [id number] [address] [place] [address] [id number] CLINICAL DOCUMENTATION CLARIFICATION FORM: POST DISCHARGE Addendum to original discharge summary date: ____ Late entry note date: __ DATE: 11-01-2018 ATTN:Justin Diana Please exercise your independent, professional judgment in responding to the clarification form. Clinical indicators are provided on the bottom of this form for your review Can you please specify whether Right fronto-temporal hemorrhage is ruled in or ruled out during this encounter? Please check appropriate box(s) to clarify if the following diagnosis has been ruled in or ruled out: Right fronto-temporal hemorrhage [ ] Ruled in diagnosis [ ] Continue to treat [ ] Resolved [ ] Ruled out diagnosis [ ] Cannot rule out diagnosis [ ] Other diagnosis please specify: [ ] Unable to determine For continuity of documentation, please document condition throughout progress notes and discharge summary. Thank You. CLINICAL INDICATORS: -Brain MRI p1 10/24 MRI Impression : Old Hemorrhage in R frontal lobe' -Family medicine H&P p1 10/24 Speech difficulty - Family medicine H&P p1 10/24 R-sided weakness -PN p1 10/26 Mr Brink is very somnolent this morning and difficult to arouse -Family medicine PN p2 10/27 CVA vs CVA with re-bleed -Family medicine PN p2 10/27 Recent somnolence concerning for re-bleed -Family medicine PN p2 10/29 2nd MRI brain: no evidence of additional hemorrhagic or ischemic event RISK FACTOR: Consult p1 10/25-78 years old Consult p1 10/25-Dementia Consult p1 10/25-New left stroke TREATMENTS: Family medicine H&P p1 10/24-Given Aspirin Family medicine H&P p1 10/24-500 cc NS bolus Family medicine H&P p6 10/24-Checking Echo and MRI brain Family medicine H&P p6 10/24-Holding antihypertensive drug Consult 10/25 Luis Alberto Magaña-Neuro consult (This form is maintained as a part of the permanent medical record) 2014 [employer] All Rights Reserved [email or web address] [not provided] MTDD
== END 2018-10-31 14:30 | DRG 65 ==
LOC: ERS 12:42 → 2SE 14:00
PROVIDERS: ADMIT Family Medicine; ATTEND Family Medicine
DX: I63.412 Cerebral infarction due to embolism of left middle cerebral artery (principal); G81.91 Hemiplegia, unspecified affecting right dominant side; N17.9 Acute kidney failure, unspecified; R47.01 Aphasia; Z66 Do not resuscitate; E11.9 Type 2 diabetes mellitus without complications; F03.90 Unspecified dementia, unspecified severity, without behavioral disturbance, psychotic disturbance, mood disturbance, and anxiety; I25.10 Atherosclerotic heart disease of native coronary artery without angina pectoris; R29.810 Facial weakness; R29.711 NIHSS score 11; R32 Unspecified urinary incontinence; E87.5 Hyperkalemia; E03.9 Hypothyroidism, unspecified; I10 Essential (primary) hypertension; Z79.84 Long term (current) use of oral hypoglycemic drugs; Z95.1 Presence of aortocoronary bypass graft; Z85.46 Personal history of malignant neoplasm of prostate; Z90.49 Acquired absence of other specified parts of digestive tract; Z86.73 Personal history of transient ischemic attack (TIA), and cerebral infarction without residual deficits; Z79.899 Other long term (current) drug therapy; Z79.82 Long term (current) use of aspirin; Z79.890 Hormone replacement therapy; Z79.02 Long term (current) use of antithrombotics/antiplatelets; Z87.891 Personal history of nicotine dependence
CPT/HCPCS: 36415; 36416; 70450; 70551; 71045; 80048; 80053; 80061; 82550; 84484; 85007; 85025; 85027; 85610; 85730; 93005; 93306; 93880; 96360; 96361